=== PATIENT | female | born 2000 | race African-American/Black ===

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

== ENCOUNTER 2018-10-09 16:35 | Emergency (ER) | payer SELFPAY | END 2018-10-09 18:25 | disposition home or self-care (01) | LOC: ERS 16:35 | DX: S00.511A Abrasion of lip, initial encounter (principal); Y04.0XXA Assault by unarmed brawl or fight, initial encounter | CPT/HCPCS: 99281 ==